=== PATIENT | female | born 1985 | race Caucasian/White ===

== ENCOUNTER 2018-03-17 16:29 | Emergency (ER) | payer OTHER, SELFPAY ==
[2018-03-17 16:30] VITALS: BP 144/95; PULSE 86; RESP 19; TEMP 35.8; O2SAT 100; BMI 21.2
[2018-03-17] MEDS: Etomidate 20 MG/10 ML Vial IV (16:31)
[2018-03-17] MEDS: Rocuronium Bromide 50 MG/5 ML Vial IV (16:32)
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
[2018-03-17 16:44] VITALS: BP 122/77; PULSE 68; RESP 11; O2SAT 100
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
[2018-03-17 16:49] VITALS: RESP 12
[2018-03-17] MEDS: Diphth,Pertuss(Acell),Tet Vac 0.5 ML Vial IM (16:50)
[2018-03-17 16:52] LABS: Hematocrit 33.1 % (37-47); Hemoglobin 10.8 g/dl (12.0-15.0); Mean Corp Hgb Conc 32.6 g/gl (32-36); Mean Corpuscular Hgb 28.8 pg (27.0-32.0); Mean Corpuscular Volume 88.3 fL (81-99); Platelet Count 397 K/mm3 (150-450); RBC Distribution Width CV 14.5 % (11.6-14.6); RBC Distribution Width SD 46.9 fl (35.1-43.9); Red Blood Count 3.75 M/mm3 (4.2-5.4); White Blood Count 8.7 K/mm3 (4.4-11.0)
[2018-03-17 16:53] VITALS: BP 127/76; PULSE 47; RESP 19
--- NOTE | 2018-03-17 17:00 | RAD_ITS ---
STUDY: X-RAY - ABDOMEN/PELVIS REASON FOR EXAM: Female, 32 years old. An NG tube TECHNIQUE: Single AP view of the abdomen / pelvis. COMPARISON: None. FINDINGS: There is an enteric tube noted with its tip in the stomach. There is no bowel obstruction. There is air and stool to the level of the rectum. The visualized osseous structures are within normal limits. RAD/Abdomen Single View (Portable) IMPRESSION: Enteric tube tip in the stomach. No bowel obstruction. Electronically Signed: Florin Rainey, at 17:41 EST Tel , Service support ,
--- NOTE | 2018-03-17 17:01 | NURSING ---
PT ALONE/INTUBATED/NONRESPONSIVE/ [facility] HERE TO TRANSPORT PT
[2018-03-17 17:04] LABS: Scan Indicated on CBC? Y/N NO
[2018-03-17 17:09] LABS: AST(SGOT) 65 U/L (15-37); Alanine Aminotransfer ALT/SGPT 42 U/L (13-56); Albumin, Serum 3.2 g/dL (3.2-5.0); Alkaline Phosphatase 63 U/L (45-117); Anion Gap 10 (5-15); BUN 17 mg/dL (7-18); BUN/Creat Ratio 23.4 RATIO (10-20); Bilirubin, Direct 0.07 mg/dL (0.00-0.30); Calcium,Total 7.7 mg/dL (8.5-10.1); Chloride 111 mmol/L (98-107); Creatinine, Serum 0.73 mg/dL (0.55-1.02); EST Glomerular Filtration Rate 99 mL/min (>60); Est Glom Filt Rate - Afr Amer 120 mL/min (>60); Estimated Creatinine Clearance 93.22 ml/min; Globulin 3.2 g/dL (2.2-4.2); Glucose 87 mg/dL (74-106); Potassium 3.1 mmol/L (3.5-5.1); Protein, Total 6.4 g/dL (6.4-8.2); Sodium Level 142 mmol/L (136-145)
[2018-03-17 17:27] LABS: Pregnancy, Serum, hCG Quali. NEGATIVE Negative (0-9 Nonpreg)
== END 2018-03-17 17:02 | disposition short-term general hospital (02) ==
PROVIDERS: Emergency Provider Emergency Medicine; Family Provider Internal Medicine; PCP Internal Medicine
DX: S01.01XA Laceration without foreign body of scalp, initial encounter (principal); S80.12XA Contusion of left lower leg, initial encounter; S80.11XA Contusion of right lower leg, initial encounter; S09.90XA Unspecified injury of head, initial encounter; Z23 Encounter for immunization; V54.5XXA Driver of pick-up truck or van injured in collision with heavy transport vehicle or bus in traffic accident, initial encounter; Y93.I9 Activity, other involving external motion; Y92.410 Unspecified street and highway as the place of occurrence of the external cause; Y99.8 Other external cause status
CPT/HCPCS: 31500; 51702; 71045; 74018; 80048; 80076; 84703; 85027; 90715; 94002; 96374; 96375; 99251; 99285; J7030; G0463

== ENCOUNTER 2018-10-30 20:53 | Emergency (ER) | payer OTHER, SELFPAY ==
[2018-10-30 20:55] VITALS: BP 138/84; PULSE 103; RESP 18; TEMP 36.8; O2SAT 99; BMI 21.7
--- NOTE | 2018-10-30 21:45 | CT_ITS ---
STUDY: CT BRAIN WITHOUT CONTRAST REASON FOR EXAM: Female, 33 years old. Headache. Feels like air in left ear. Craniotomy. RADIATION DOSAGE (If Supplied By Facility): CTDIvol = ( 44.99 ) mGy, DLP = ( 815.79 ) mGycm TECHNIQUE: Transaxial CT imaging of the brain was performed without administration of intravenous contrast material. Individualized dose optimization techniques were used for this CT. COMPARISON: No relevant priors. FINDINGS: Normal soft tissue structures. There is evidence of prior left sided craniotomy. Normal size ventricles and extra-axial spaces for the patient's age. Normal white matter tracts of the cerebral hemispheres. Normal basal ganglia and thalami. Normal brainstem. Normal cerebellum. There is no intracranial hemorrhage. There are no findings of an acute ischemic infarction. There is minimal opacification of the ethmoid and visualized maxillary sinuses. CT/Brain/Head without Contrast IMPRESSION: No acute intracranial process. Mild opacification of the ethmoid and visualized maxillary sinuses consistent with a history of sinusitis. Electronically Signed: Jackie Herrmann MD at 22:08 EDT Tel , Service support ,
--- NOTE | 2018-10-30 22:52 | CM.ED ---
Social Work Consult: Anxiety Informant: Dr. Mccarthy Chief Complaint: Patient stating to have anxiety and lots of emotions. Patient with history of TBI in 2017. Marital/Social History: Patient to Roge Palm and has 3 sons ages 6, 8, and 10. Living Situation: With family. Support/Resources: Patient identifying spouse as main support. Patient also noting that patient mom and grandmother are supportive and assist with care for sons. Mental Health Treatment/History: Patient denies any mental health counseling services. Patient stating to have been diagnosed with ADHD after TBI. Patient stating to have see a neuropsychiatrist after TBI that recommended for patient to take medication to manage ADHD, patient declined this medication. Patient stating to be taking medications to manage nervous and anxiety. Substance Abuse hx: Patient denies. Risk to self/Others: Patient denies any suicidal or homicidal thoughts. Assessment: Met with patient and patient spouse, Roge in room. Patient agreeable to be meeting with this high school social studies teacher. Patient stating to want help with anxiety. Patient wanting to know if placement in a facility is an option for patient. This high school social studies teacher communicating that patient is not reporting suicidal thoughts or risk to others and does not meet criteria for psychiatric placement and this would not be an appropriate referral. This high school social studies teacher speaking with patient about beginning counseling services or looking into an outpatient program for individuals with a TBI diagnosis. Patient and patient spouse are agreeable to this. Patient or patient spouse to contact counseling agency or outpatient TBI program on Thursday. Patient tearful throughout assessment. Support provided along with active listening. Collaborating with Dr. Mccarthy. Dr. Mccarthy agreeing with above plan. Interventions: Social Work assessment List of counseling agencies provided to patient. Information on outpatient TBI treatment options provided to patient. Calvin HOLCOMB, JAYLYN
--- NOTE | 2018-10-30 23:17 | ED.DCSUM_ITS ---
- ER Visit Summary Date of Service: 10/30/18 Chief Complaint: Headache, sore throat, possible dental infection History of Present Illness: The patient is a 33 F who presents with headache, sore throat, and dental pain that has been getting worse throughout the day today. Patient describes the pain as throbbing. Patient states the pain is worse in her left ear, throat, left upper teeth, and epigastric area. Patient states that cold seems to help with her pain. Patient admits to subjective fevers. Patient also admits to some rhinorrhea. Patient also admits to some nausea but denies any vomiting. Patient states she has persistent headaches for prior traumatic brain injury. Patient states she has a history of anxiety. Physical Examination: Vital signs are stable. Patient is afebrile. Patient is in no acute distress. Cranial nerves II through XII are intact. Strength is 5/5 bilaterally upper and lower extremities. There are no sensory deficits noted. Tympanic membranes are clear bilaterally. Oral mucosa is pink and moist. There are multiple dental caries noted. Oropharynx is clear. There is no exudate noted. Heart was regular rate and rhythm. Lungs are clear and equal bilaterally. Abdomen is soft and nontender. Test Results: CT scan of the brain was obtained. There is no acute intracranial abnormality. Emergency Department Course and Treatment: Patient was advised that her ear pain is most likely related to a dental infection. Patient will be given a prescription for Pen-Vee K for her dental infection. Patient was also given referrals for follow-up with her anxiety. Patient is not acutely suicidal or homicidal at this time and does not require inpatient admission. Patient and her understood and were agreeable with the plan. All questions were answered. Disposition: Discharge home Impression: 1. Infected dental caries 2. Headache 3. History of traumatic brain injury 4. Anxiety This note was generated with [employer] dictation software. It may contain incorrect words, spelling, and punctuation that were not noted in review of the chart prior to signing ED Disposition - Plan for ED Patient: Disposition: Home or Assisted Living Diagnosis: Infected dental caries, Anxiety, Headache Instructions: Dental Cavity, Anxiety Reaction Referrals: Mayte Tirado DO [Primary Care Provider] - 5-7 Days
[2018-10-30 23:48] VITALS: BP 132/60; PULSE 90; RESP 16; O2SAT 98
== END 2018-10-30 23:49 | disposition home or self-care (01) ==
PROVIDERS: Emergency Provider Emergency Medicine; Family Provider Internal Medicine; PCP Internal Medicine
DX: K04.7 Periapical abscess without sinus (principal); K02.9 Dental caries, unspecified; R51 Headache; Z87.820 Personal history of traumatic brain injury; F41.9 Anxiety disorder, unspecified; H53.8 Other visual disturbances; J20.9 Acute bronchitis, unspecified; J34.89 Other specified disorders of nose and nasal sinuses; F17.200 Nicotine dependence, unspecified, uncomplicated
CPT/HCPCS: 70450; 99282

== ENCOUNTER 2019-07-08 13:29 | Emergency (ER) | payer OTHER, SELFPAY ==
[2018-11-01 17:40] VITALS: BMI 21.7
[2019-07-08 13:30] VITALS: BP 105/61; PULSE 104; RESP 20; TEMP 37.7; O2SAT 95; BMI 22.8
--- NOTE | 2019-07-08 13:53 | ED.DCSUM_ITS ---
- ER Visit Summary Date of Service: 07/08/19 Chief Complaint: Nausea, Vomiting and diarrhea History of Present Illness: The patient is a 34 F past medical issues anxiety and depression. Prior traumatic intracranial bleed. Patient states that for the last 5 days she has had nausea vomiting and diarrhea. Diarrhea resolved 2 days ago. She still having nausea vomiting. Initially she thought was food poisoning. He is only had crampy abdominal discomfort no localizing pain. She denies any dysuria. She denies any cough or shortness of breath. She states she feels dehydrated. Physical Examination: Younger female vital signs are stable. Currently her temperature is 99.9. She does not look septic or toxic. H EENT exam unremarkable except mild dry mucous membranes. Neck nontender no lymphadenopathy. Lungs clear to auscultation bilaterally. Heart regular rhythm no murmur rate about 100. Abdomen is soft nontender normal bowel sounds no peritoneal signs. No distention. No obstruction. Right upper and right lower quadrants are unremarkable nontender. No hernias or masses. Extremities moves all 4. No edema. Back nontender. Neurologically she is awake alert with no focal motor or sensory deficits. Test Results: None Emergency Department Course and Treatment: Patient more likely has a viral gastroenteritis. She has no localizing abdominal tenderness. She does not look septic or toxic. She will be treated with IV fluids and Zofran. And then a p.o. fluid challenge. Treatment Plan: Fluids and rest. Increase diet slowly. Zofran as needed for nausea. Follow-up if not improving. Return if worse. Disposition: discharge Impression: Viral gastroenteritis Dehydration This note was generated with [employer] dictation software. It may contain incorrect words, spelling, and punctuation that were not noted in review of the chart prior to signing ED Disposition - Plan for ED Patient: Referrals: Mayte Tirado DO [Primary Care Provider] -
--- NOTE | 2019-07-08 13:56 | ED.DEP ---
ED Disposition - Plan for ED Patient: Disposition: Home or Assisted Living Instructions: ED Viral Gastroenteritis Prescriptions: Ondansetron [Zofran Odt] 4 mg PO Q8H PRN PRN #10 tab PRN Reason: Nausea Prescription Printed Referrals: Mayte Tirado DO [Primary Care Provider] - 3-5 Days if not improving Additional Instructions: Plenty of fluids and rest. Increase diet as tolerated. Zofran as needed for nausea. Follow-up with your doctor if not improving or return to the ER feeling worse.
[2019-07-08] MEDS: 0.9% Normal Saline 1,000 ML 1000 ML IV (14:25)
[2019-07-08] MEDS: Ondansetron 4 MG/2 ML Vial IV (14:25)
[2019-07-08 15:21] VITALS: BP 106/52; PULSE 97; RESP 16
== END 2019-07-08 15:25 | disposition home or self-care (01) ==
LOC: ED 14:10
PROVIDERS: Emergency Provider Emergency Medicine; PCP Internal Medicine
DX: E86.0 Dehydration (principal); A08.4 Viral intestinal infection, unspecified; F41.9 Anxiety disorder, unspecified; F32.9 Major depressive disorder, single episode, unspecified; Z79.899 Other long term (current) drug therapy; Z72.0 Tobacco use
CPT/HCPCS: 96361; 96374; 99283; J7030; J2405

== ENCOUNTER → 2021-03-06 14:11 | Outpatient (CLI) | payer MEDICAID, SELFPAY ==
[2021-03-06 15:24] LABS: Absolute Lymphocyte Count 1.45 X10^3/uL (0.83-4.51); Absolute Neutrophil Count 6.4 X10^3/uL (2.0-7.7); Basophil# 0.05 X10^3/uL; Basophil% 0.6 % (0-1); Eosinophil# 0.04 X10^3/uL; Eosinophils% 0.5 % (0-5); Hematocrit 39.4 % (37-47); Hemoglobin 13.1 g/dL (12.0-15.0); Lymphocyte # 1.45 X10^3/ul (0.83-4.51); Lymphocyte % 16.6 % (19-41); Mean Corp Hgb Conc 33.2 g/dL (32-36); Mean Corpuscular Hgb 29.3 pg (27.0-32.0); Mean Corpuscular Volume 88.1 fL (81-99); Mean Platelet Vol. 10.2 fl (6.2-12.0); Monocyte# 0.75 X10^3/uL; Monocyte% 8.6 % (0-10); NRBC Flagged by Analyzer 0 % (0-5); Neutrophil # 6.39 X10^3/uL (2.7-7.7); Neutrophil % 73.1 % (47-70); Platelet Count 297 K/mm3 (150-450); RBC Distribution Width CV 14.6 % (11.6-14.6); RBC Distribution Width SD 47.2 fl (35.1-43.9); Red Blood Count 4.47 M/mm3 (4.2-5.4); White Blood Count 8.7 K/mm3 (4.4-11.0)
[2021-03-07 08:44] LABS: HIV - WCH Non-Reactive (Nonreactive); Hepatitis B Surface Antigen Non-Reactive (Nonreactive); Hepatitis C Antibody Non-Reactive (Nonreactive); Rubella IgG Reactive (Nonreactive); Syphilis Antibodies Non-reactive
[2021-03-09 02:07] LABS: Chlamydia By Nucleic Acid AMP Negative (Negative)
[2021-03-09 07:44] LABS: Gonococcus By Nucleic Acid AMP Negative (Negative)
[2021-03-12 13:32] LABS: HPV APTIMA, High Risk Negative (Negative)
== END ==
PROVIDERS: PCP Internal Medicine; Visit Provider Obstetrics & Gynecology
DX: Z34.81 Encounter for supervision of other normal pregnancy, first trimester (principal); Z11.3 Encounter for screening for infections with a predominantly sexual mode of transmission; Z12.4 Encounter for screening for malignant neoplasm of cervix
CPT/HCPCS: 36415; 85025; 86703; 86762; 86780; 86803; 87086; 87088; 87340; 87491; 87591; 87624; 88175; G0145

== ENCOUNTER 2021-07-04 14:16 | Outpatient (CLI) | payer MEDICAID, SELFPAY ==
[2021-07-04 14:53] LABS: Hematocrit 30.6 % (37-47); Mean Corp Hgb Conc 32.7 g/dL (32-36); Mean Corpuscular Volume 91.9 fL (81-99); Mean Platelet Vol. 10.1 fl (6.2-12.0); Platelet Count 358 K/mm3 (150-450); RBC Distribution Width SD 47.5 fl (35.1-43.9); Red Blood Count 3.33 M/mm3 (4.2-5.4); White Blood Count 13.1 K/mm3 (4.4-11.0)
[2021-07-04 15:04] LABS: Glucose Challenge Gest 1H 50g 104 mg/dL (70-140)
== END 2021-07-04 23:59 | disposition home or self-care (01) ==
LOC: WOBLAB 14:18
PROVIDERS: PCP Internal Medicine; Referring Provider Obstetrics & Gynecology; Visit Provider Obstetrics & Gynecology
DX: Z34.82 Encounter for supervision of other normal pregnancy, second trimester (principal)
CPT/HCPCS: 36415; 82950; 85027

== ENCOUNTER → 2021-09-12 | Outpatient (CLI) | payer MEDICAID, SELFPAY | END | disposition home or self-care (01) | LOC: LABSPEC 12:02 | PROVIDERS: PCP Internal Medicine; Visit Provider Obstetrics & Gynecology | DX: Z36.85 Encounter for antenatal screening for Streptococcus B (principal) | CPT/HCPCS: 87081 ==

== ENCOUNTER 2021-10-01 09:38 | Inpatient (IN) | payer MEDICAID, SELFPAY ==
[2021-10-01] VITALS (15 sets, daily range): BP systolic 86–115; BP diastolic 35–63; PULSE 60–84; RESP 14–16; TEMP 36.3–37.1; O2SAT 95–98; BMI 29.0
[2021-10-01] MEDS: Lactated Ringers 1,000 ML 999 ML IV (10:16)
[2021-10-01 10:39] LABS: Absolute Lymphocyte Count 1.38 X10^3/uL (0.83-4.51); Absolute Neutrophil Count 10.1 X10^3/uL (2.0-7.7); Basophil# 0.04 X10^3/uL; Basophil% 0.3 % (0-1); Eosinophil# 0.07 X10^3/uL; Eosinophils% 0.6 % (0-5); Hematocrit 26.2 % (37-47); Hemoglobin 8.7 g/dL (12.0-15.0); Lymphocyte # 1.38 X10^3/ul (0.83-4.51); Lymphocyte % 10.9 % (19-41); Mean Corp Hgb Conc 33.2 g/dL (32-36); Mean Corpuscular Volume 84.2 fL (81-99); Mean Platelet Vol. 10.7 fl (6.2-12.0); Monocyte# 0.93 X10^3/uL; Monocyte% 7.3 % (0-10); NRBC Flagged by Analyzer 0 % (0-5); Neutrophil # 10.09 X10^3/uL (2.7-7.7); Neutrophil % 79.4 % (47-70); Platelet Count 373 K/mm3 (150-450); RBC Distribution Width CV 14.3 % (11.6-14.6); RBC Distribution Width SD 43.7 fl (35.1-43.9); Red Blood Count 3.11 M/mm3 (4.2-5.4); White Blood Count 12.7 K/mm3 (4.4-11.0)
[2021-10-01] MEDS: Acetaminophen 500 MG Tablet 1000 MG PO ×3 (11:03→23:05)
[2021-10-01] MEDS: Lactated Ringers 1,000 ML 150 ML IV (11:07)
--- NOTE | 2021-10-01 11:57 | PCM.HP.BLA ---
History and Physical Date of Admission: 10/01/21 Chief complaint: Repeat section bilateral tubal ligation History of present illness: 36-year-old at 39 weeks and 1 day with MAXX: 10/07/2021 by 9-week ultrasound arrives for repeat section bilateral tubal ligation at term. Denies headache, visual changes, chest pain, shortness of breath, nausea vomiting, right upper quadrant pain. Patient states good movement. is complicated by AMA, chronic anemia Obstetric history: G1: 40-week primary section nonreassuring heart tones male 04/2008 G2: 39-week repeat section 07/2010 G3: 39-week repeat section 09/2012 G4: Current Past medical history: Chronic anemia Past surgical history: section x3, tonsils and adenoids, skull, left elbow Medications: vitamin, iron Allergies: No known drug allergies Social history: Half pack per day smoker, denies alcohol or drug use Family history: Denies history DVT or PE Review of systems: Besides above pertinent positives a full review of systems was performed and found to be negative Physical exam: Vitals: Pending General: Normal-appearing no acute distress none HEENT: Normocephalic/atraumatic no cervical of adenopathy Cardiac/respiratory: No use of accessory muscles, nonlabored breathing Abdomen: Soft, nontender, gravid Extremities: No peripheral edema normal peripheral pulses Psych: Normal affect, demeanor nonpressured speech Labs: White blood cell count 12.7 hemoglobin 8.7 hematocrit 26.2% platelets 373. Blood type AB+ antibody negative Assessment plan: 36-year-old at 39 weeks and 1 day for repeat section bilateral tubal ligation at term Admit labor and delivery CEFM 2 g Ancef Routine orders Anesthesia to see
[2021-10-01] MEDS: Sodium Citrate/Citric Acid 30 ML UDC PO (11:58)
[2021-10-01] MEDS: Cefazolin 2 GM in 0.9% Normal Saline 100 ML IV (12:12)
--- NOTE | 2021-10-01 12:27 | FALS_PTH ---
PATIENT: CJ MAYA LOC: [facility] U#:[id number] AGE/SX: 36/F ROOM: WP006 RE10/01/[address]: Dr. Darshan Avendaño MD : 1985 BED: 1 DIS: 10/02/2021 SPEC #: [id number] RECD: 10/01/21 13:33 STATUS: NGHIA DANA #: [id number] WALTER: 10/01/21 12:[address]: Darshan Avendaño DEPT: SURGICAL PATHOLOGY RECD BY: Miki Quezada ENTERED: 10/02/21 08:44 SP TYPE: FALL TUBES OTHR DR: Dr. Mayte Tirado DO Tissues: Fallopian tube Procedures: Surgery Specimen Level II HEADER OPERATION: Tubal ligation PRE-OP DIAGNOSIS: Sterilization TISSUE SUBMITTED: Fallopian tubes MICROSCOPIC DIAGNOSIS Right fallopian tube, salpingectomy: Benign paratubal cyst. Left fallopian tube, salpingectomy: Benign paratubal cyst. AM:tim 10/03/2021 MICROSCOPIC DESCRIPTION Slides are reviewed. GROSS DESCRIPTION Received in fixative is one container labeled with the patient's name and designated bilateral fallopian tubes, suture left side. The specimen consists of bilateral fallopian tubes including fimbrial ends. Right fallopian tube measures 6 cm in length and 0.6 cm in diameter and the left fallopian tube measures 7 cm in length and up to 0.6 cm in diameter. Sections reveal unremarkable cut surfaces. Digital Marketing Associate sections are submitted in two cassettes as follows: 1 ? right fallopian tube, 2 ? left fallopian tube. / SJ:tim 10/02/2021 TC:5 CPT: 71972 x2
--- NOTE | 2021-10-01 12:53 | OP.PCM_ITS ---
Details Operative Information Date of Procedure: 10/01/21 Pre-Operative Diagnosis: History of section, term, desires permanent sterilization Post-Operative Diagnosis: History of section, term, desires permanent sterilization Indications Narrative: Procedure: Repeat low transverse section Via Pfannenstiel incision bilateral salpingectomy Surgeon: Darshan Avendaño MD Anesthesia: Spinal EBL: 800 cc Urine output: Minimal IV fluids: 1000 cc Complications: None Specimen: Bilateral fallopian tubes Findings: Female infant in vertex position Apgars 8/9. Normal uterus, tubes, and ovaries. Consent: Patient with history of section desires permanent sterilization in need of repeat section Via Pfannenstiel incision and bilateral salpingectomy. Patient understands risk of the procedure include but are not limited to visceral or vascular injury, prolonged hospitalization, blood loss and need for transfusion, reoperation. Patient state understanding and wished to proceed. All questions were answered and consent was signed. Procedure: Patient was brought back to the OR where spinal anesthesia was found to be adequate. 2 g of Ancef were given for infection prophylaxis. Patient was p repared and draped in a supine position with leftward tilt. A Pfannenstiel incision was made at the skin with a scalpel. The incision was carried down to the fascia with a scalpel. The fascia was excised and extended laterally. Inferior aspect of the fascia was grasped with a clamp and the underlying rectus and pyramidalis muscle were dissected off sharply with Roa scissors. In a similar fashion the superior aspect of the fascia was grasped with a clamp and the underlying rectus muscle was dissected off sharply. Rectus muscle was dissected at the midline down to the level of pubic symphysis. Preperitoneal fatty tissue was noted and peritoneum was entered bluntly. Peritoneum was extended superiorly and inferiorly with good visualization of bladder. Bladder blade was inserted and vesicouterine peritoneum was identified. Low transverse hysterotomy was made. Hand was placed in the incision and gentle fundal pressure was applied once the head was brought into the incision and the bladder blade was removed. Head and shoulders were delivered with ease. Cord was cut and clamped. Baby handed off to nursing. Placenta was delivered via cord traction and fundal massage. IV oxytocin was initiated in order to facilitate uterine contractions. Uterus was exteriorized and wiped out with dry laparotomy sponge in order to remove remaining placental membranes. Uterus was closed in a continuous running fashion. Good hemostasis was noted. Right fallopian tube was identified within the fimbriae and the mesosalpinx was cut and cauterized with a LigaSure device, right fallopian tube was sent to pathology. Left fallopian tube was identified up to the fimbria and the mesosalpinx was cut and cauterized with LigaSure device, left fallopian tube was sent to pathology. Good hemostasis was noted bilaterally. Uterus was placed back into the abdominal cavity and incision was reinspected, good hemostasis was noted. Fascia was closed in a continuous running fashion with PDS suture. Subcutaneous irrigation was performed and good hemostasis was noted. Skin was closed in a subcuticular fashion. Good hemostasis was noted. All counts were correct x2. Patient tolerated procedure well and was brought to recovery in stable condition.
[2021-10-01] MEDS: Oxytocin 30 units/NS 500 ml 30 UNITS/500 ML IV.SOLN 167 UNITS IV (13:10)
[2021-10-01 13:33] LABS: Pathology Specimen OB SEE PATHOLOGY REPORT
[2021-10-01] MEDS: Ketorolac 30 MG/ML Syringe IV ×2 (13:43→19:20)
[2021-10-01] MEDS: oxyCODONE 5 MG Tablet PO ×3 (14:15→23:04)
[2021-10-01] MEDS: Lactated Ringers 1,000 ML 100 ML IV (16:10)
[2021-10-02] MEDS: Ketorolac 30 MG/ML Syringe IV ×2 (01:08→07:37)
[2021-10-02 04:02] VITALS: BP 105/60; PULSE 80; RESP 14; TEMP 36.9
[2021-10-02] MEDS: Acetaminophen 500 MG Tablet 1000 MG PO ×2 (05:04→10:32)
[2021-10-02 05:11] LABS: Hematocrit 24.1 % (37-47); Hemoglobin 7.7 g/dL (12.0-15.0); Mean Corpuscular Hgb 27.7 pg (27.0-32.0); Mean Corpuscular Volume 86.7 fL (81-99); Mean Platelet Vol. 10.2 fl (6.2-12.0); Platelet Count 311 K/mm3 (150-450); RBC Distribution Width CV 14.4 % (11.6-14.6); RBC Distribution Width SD 45.4 fl (35.1-43.9); Red Blood Count 2.78 M/mm3 (4.2-5.4); White Blood Count 15.9 K/mm3 (4.4-11.0)
[2021-10-02] MEDS: 0.9% Saline Lock 10 ML Syringe IV (07:38)
[2021-10-02 07:45] VITALS: BP 120/66; PULSE 74; RESP 16; TEMP 36.7
--- NOTE | 2021-10-02 09:11 | PN.OBGYN_ITS ---
Subjective Subjective Patient without complaints. Tolerating diet well. Minimal vaginal bleeding. Denies any orthostatic changes. Positive flatus. Wants to go home if baby is able to go. Objective Data Objective Data Good urine output. Hemoglobin stable at 7.7. Wound is clean, dry, intact covered with Mepilex dressing. Vital Signs: Vital Signs Temp Pulse Resp BP Pulse Ox O2 Del Method 98.0 F 74 16 120/66 98 Room Air 10/02/21 07:45 10/02/21 07:45 10/02/21 07:45 10/02/21 07:45 10/01/21 19:21 10/02/21 04:02 Oxygen Delivery Method Room Air Weight: 158 lb 11.725 oz Body Mass Index (BMI) 29.0 Intake & Output: Intake and Output for Last 24 Hours 09/30/21 10/01/21 10/02/21 23:59 23:59 23:59 Intake Total 3378.33 / 3378.33 Output Total 2300 / 2300 Balance 1078.33 / 1078.33 Lab / Micro Data Result Diagrams: 10/02/21 05:03 Labs: Laboratory Results - last 24 hr 10/01/21 10:10: WBC 12.7 H, RBC 3.11 L, Hgb 8.7 L, Hct 26.2 L, MCV 84.2, MCH 28.0, MCHC 33.2, RDW Std Deviation 43.7, RDW Coeff of Luba 14.3, Plt Count 373, MPV 10.7, Immature Gran % (Auto) 1.500 H, Neut % (Auto) 79.4 H, Lymph % (Auto) 10.9 L, Phillips % (Auto) 7.3, Eos % (Auto) 0.6, Baso % (Auto) 0.3, Absolute Neuts (auto) 10.1 H, Absolute Lymphs (auto) 1.38, Nucleated RBC % 0 10/01/21 10:10: Blood Type AB POSITIVE, Antibody Screen NEGATIVE 10/02/21 05:03: WBC 15.9 H, RBC 2.78 L, Hgb 7.7 L, Hct 24.1 L, MCV 86.7, MCH 27.7, MCHC 32.0, RDW Std Deviation 45.4 H, RDW Coeff of Luba 14.4, Plt Count 311, MPV 10.2 Micro: Microbiology 10/01/21 10:23 Nasal Secretion SARS-CoV-2 Antigen (Rapid) - Final Assessment & Plan (1) Delivery by section: PLAN: Doing well postoperative day #1 status post repeat section and tubal. Will discharge to home with routine instructions if baby is able to go. Patient instructed to use iron therapy for at least 6 weeks.
--- NOTE | 2021-10-02 09:14 | DCINST_ITS ---
Discharge Instructions Diet Discharge Diet: No restrictions Activity May resume sexual activity in: 4-6 weeks Lifting Restrictions: 20 pounds Additional Activity Instructions:: Nothing in the vagina for 4 weeks please; no lifting more than 20-25 lbs for 6 weeks. Use Ibuprophen 800 mg orally every 8 hours as needed for pain. Can also add Tylenol 1000 mg every 8 hours if needed for pain. If Ibuprophen and Tylenol are not effective then use the Oxycodone but keep in mind it can cause serious constipation issues. Drink lots of water. Call if bleeding more than a pad per hour. Use the colace as constipation is a big issue after this type of surgery. Steps and walking are OK. Activity is encouraged but do not over do it !! Dressing / Incision Call your doctor if your incision/area has: Continuous Slow Oozing, Sudden Increased Bleeding, Increased Pain/ Swelling, Increased Redness and Foul Smelling Discharge Call your doctor if you observe: Fever of 101 or Higher, Inability to urinate, Inability to have a bowel movement and Using more than 1 pad per hour Follow Up Care Please Follow Up With: Darshan Avendaño MD When: Call [phone] for appointment to be seen in 2 weeks. Test Results: Test results from this visit will be discussed in further detail at your follow- up appointment, if applicable. Discharge Plan Admission Admit Date/Time: 10/01/21 09:38 Primary Reason for Your Visit: Repeat Section and Tubal Attending Provider: Darshan Avendaño Primary Care Provider: Mayte Tirado Discharge Orders/Prescriptions Prescriptions: New oxycodone 5 mg capsule 5 mg PO Q6H PRN (Reason: pain (scale score 7-10)) 7 Days Qty: 10 0RF docusate sodium 100 mg tablet 100 mg PO BID PRN (Reason: constipation) Qty: 60 1RF ferrous sulfate 325 mg (65 mg iron) tablet 325 mg PO BID Qty: 60 1RF Continued Prenatabs FA 29-1 mg Tablet 1 tab PO DAILY Referrals / Follow Up: Mayte Tirado DO [Primary Care Provider] - Disposition Disposition (needs filled in before D/C Order can be placed): Home, Self Care
[2021-10-02] MEDS: Senna/Docusate Sodium 1 Tablet PO (10:33)
[2021-10-02] MEDS: Enoxaparin 40 MG/0.4 ML Syringe SC (10:33)
[2021-10-02 12:45] VITALS: BP 112/71; PULSE 73; RESP 16; TEMP 36.8
[2021-10-02] MEDS: Ibuprofen 600 MG Tablet PO (14:17)
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
== END 2021-10-02 17:45 | disposition home or self-care (01) | DRG 539 ==
PROVIDERS: Admitting Provider Obstetrics & Gynecology; PCP Internal Medicine; Visit Provider Obstetrics & Gynecology
PROC: 10D00Z1 Extraction of Products of Conception, Low, Open Approach (ICD-10-PCS; CPT 59514; principal; 2021-10-01 11:45)
DX: O34.211 Maternal care for low transverse scar from previous cesarean delivery (principal); F17.210 Nicotine dependence, cigarettes, uncomplicated; O99.02 Anemia complicating childbirth; Z37.0 Single live birth; Z3A.39 39 weeks gestation of pregnancy; O99.334 Smoking (tobacco) complicating childbirth
CPT/HCPCS: 59050; 85025; 85027; 86850; 86900; 86901; 87426; 88302; 99218; 99406; J7120; A4216; G0378; J2405

== ENCOUNTER 2021-10-03 11:26 | Emergency (ER) | payer MEDICAID, SELFPAY ==
[2021-10-03 11:26] VITALS: BP 144/76; PULSE 86; RESP 14; TEMP 36.6; O2SAT 97; BMI 27.2
--- NOTE | 2021-10-03 11:42 | CT_ITS ---
STUDY: CT FACIAL BONES WITHOUT CONTRAST REASON FOR EXAM: Female, 36 years old. Abscess overlying the right mandible. Recent antibiotics. RADIATION DOSAGE (If Supplied By Facility): CTDIvol = ( 29.38 ) mGy, DLP = ( 547.46 ) mGycm TECHNIQUE: The patient was scanned in a multi detector CT scanner. Sagittal and coronal images were reconstructed. Individualized dose optimization techniques were used for this CT. COMPARISON: None. FINDINGS: Diffuse soft tissue swelling in the subcutaneous tissues overlying the right side of the mandible with overlying skin thickening and subcutaneous edema. This is in keeping with a phlegmon. No abscess is seen. There is evidence of a lytic abnormality at the base of the last molar in the mandible. Normal orbital puckett and orbital contents. Normal nasal bones and anterior nasal spine. Normal facial bones. There is no demonstrated fracture. Normal visualized paranasal sinuses. CT/Sinus/Facial Bone IMPRESSION: Diffuse soft tissue swelling overlying the right mandible without evidence of abscess. Findings in keeping with a possible cavity at the base of the last molar in the mandible. Electronically Signed: Juanito Pepper MD at 12:17 EDT ,
--- NOTE | 2021-10-03 11:46 | EX.ED.DYSGE1 ---
HPI History of Present Illness Chief Complaint: Abscess Detail of Chief Complaint: Jaw abscess Informant: patient Narrative Narrative: Patient presents to the emergency department complaint of an abscess to her jaw that she initially states started about a week and a half ago. Patient was seen in urgent care in [place] and started on Zithromax for 5 days. Patient then delivered a baby via 2 days ago and the redness and swelling have increased. She denies any fevers. She denies significant pain. Patient has not followed up with a dentist. Prior similar symptoms: No PFSH PFSH Medical History (Updated 10/03/21 @ 12:[address] Opal Morgan, DO) History of blood transfusion History of pre-term labor Trauma Home Medications vits,calcium no.78-iron fumarate-folic acid 29 mg-1 mg tablet (Prenatabs FA) 1 tab PO DAILY 10/01/21 [History Last Taken 09/30/21 08:00] docusate sodium 100 mg tablet 100 mg PO BID PRN constipation #60 tabs 10/02/21 [Rx Last Taken Unknown] ferrous sulfate 325 mg (65 mg iron) tablet 325 mg PO BID #60 tabs 10/02/21 [Rx Last Taken Unknown] oxycodone 5 mg capsule 5 mg PO Q6H PRN pain (scale score 7-10) 7 days #10 caps 10/02/21 [Rx Last Taken Unknown] clindamycin HCl 300 mg capsule (Cleocin HCl) 300 mg PO Q6H #40 CAPSULES 10/03/21 [Rx Last Taken Unknown] Allergy/AdvReac Type Severity Reaction Status Date / Time ciprofloxacin [From Cipro] Allergy Hives Verified 10/03/21 11:29 fentanyl AdvReac Other Verified 10/03/21 11:29 Surgical History (Updated 10/02/21 @ 09:[address] J Carlos Barlow MD) History of History of craniotomy History of elbow surgery Social History (System 11/09/18 @ 13:40 by Priyanka Christianson) Smoking Status: Current every day smoker tobacco type: cigarettes alcohol intake: never ROS ROS ED Review of Systems ROS Unobtainable: other Constitutional Constitutional ED: Reports lethargy; Denies chills, fever(s), sweats or weight loss Eyes Eyes: Denies blurry vision, change in vision or diplopia ENT ENT ED: Reports other Details: Jaw abscess ; Denies rhinorrhea or sore throat Cardiovascular Cardiovascular: Reports chest pain and racing heartbeat; Denies orthopnea Respiratory/Chest Respiratory/Chest: Reports dyspnea and dyspnea on exertion; Denies cough, orthopnea or sputum Gastrointestinal Gastrointestinal: Denies abdominal pain, diarrhea, nausea or vomiting Genitourinary Genitourinary ED: Denies dysuria, hematuria or urinary frequency Musculoskeletal Musculoskeletal: Denies arthralgias, back pain, myalgias or neck pain Integumentary Denies abscess, Abrasions or rash Neurologic Neurologic: Denies headache(s) or weakness Psychiatric Psychiatric: Denies anxiety, depression or suicidal thoughts Endocrine Endocrinology: Denies polydipsia, polyphagia or polyuria Hematologic/Lymphatic Hematologic/Lymphatic: Denies easy bleeding, easy bruising or lymphadenopathy Allergic/Immunologic Allergic/Immunologic ED: Denies mouth swelling, tongue swelling or urticaria EXAM Physical Exam Const Vital Signs: 10/03/21 11:26 10/03/21 12:05 Temperature 97.9 F 97.9 F Temperature Source Temporal Temporal Pulse Rate 86 86 Respiratory Rate 14 14 Blood Pressure 144/76 H 144/76 H Blood Pressure Mean 98 Pulse Ox 97 97 Oxygen Delivery Method Room Air Room Air Positive well nourished and well developed General Appearance ED: well developed and NAD HEENT Reports TM's clear and moist mucous membranes HEENT Narrative: Patient has area of soft tissue swelling to the right lower mandible. She has multiple broken and carious teeth that are not tender to palpation. Patient does have fullness along the gingiva with an area of suspected fluctuance noted. There is some faint facial erythema. normocephalic and atraumatic; Negative for trauma or tenderness Tympanic Membrane ED: Yes TM's clear Eyes PERRL and EOMs intact bilaterally General Eye ED: Negative for pale conjunctiva or scleral icterus Neck no lymphadenopathy, supple and no JVD General: Negative for tenderness Chest Wall inspection of chest normal and palpation of chest normal Chest: Negative for tenderness Resp normal respiratory effort and clear to auscultation bilaterally Effort and Inspection: Negative for respiratory distress or pain with movement Auscultation: Negative for rhonchi, wheezes or diminished lung sounds Cardio regular rate, regular rhythm, S1 normal heart sound, S2 normal heart sound and no murmurs Peripheral Pulses: pulses 2+ throughout GI normal to inspection, nondistended, normoactive bowel sounds, soft to palpation, non-tender, non-distended and no masses Back/Spine no CVA tenderness and no thoracic nor lumbar tenderness Extremity normal to inspection General Extremety ED: Negative for edema General Extremity: Negative for edema Neuro oriented x3, CN's II-XII intact bilaterally, no sensory deficits noted and gait normal Sensorium / Orientation: awake, alert, oriented to person, oriented to place and oriented to time Motor Exam: strength 5/5 throughout and strength abnormal Psych mental status grossly normal Skin no rashes or lesions noted and no wounds MDM MDM MDM Narrative Medical decision making narrative: I suspected a dental abscess. Patient was offered a incision and drainage. Patient was in agreement. I did take an 18-gauge needle and made a stab incision into the most fluctuant portion of the gingiva adjacent to the premolars and only blood was expressed and no real purulent debris. Patient also has a fluctuant area on the dermal surface of the jaw as well. This point a decision was made to obtain a CT scan to evaluate further to see if there is is just inflammatory changes versus discrete abscess. The CT scan was obtained and showed inflammatory changes but no discrete abscess. At this point patient advised use warm compresses to the area. I will start her on clindamycin. Patient will start her infant on bottle feeds as she has already started this today. Patient will be given a list of dentists in the area and advised to follow-up. Radiography Diagnostic Testing: Clinical Impression(s) from Imaging Studies Facial/Sinus 10/03/21 11:42 IMPRESSION: Diffuse soft tissue swelling overlying the right mandible without evidence of abscess. Findings in keeping with a possible cavity at the base of the last molar in the mandible. Electronically Signed: Juanito Pepper MD at 12:17 EDT , Discharge Plan Triage Chief Complaint: Abscess ED Provider: Opal Morgan Dx/Rx/DC Orders Clinical Impression: Dental cavities, Cellulitis of face Instructions: ED Cellulitis, Facial, ED Dental Cavity Prescriptions: New clindamycin HCl [Cleocin HCl] 300 mg capsule 300 mg PO Q6H Qty: 40 0RF No Action Prenatabs FA 29-1 mg Tablet 1 tab PO DAILY oxycodone 5 mg capsule 5 mg PO Q6H PRN (Reason: pain (scale score 7-10)) 7 Days Qty: 10 0RF docusate sodium 100 mg tablet 100 mg PO BID PRN (Reason: constipation) Qty: 60 1RF ferrous sulfate 325 mg (65 mg iron) tablet 325 mg PO BID Qty: 60 1RF Primary Care Provider: Mayte Tirado Referrals: Mayte Tirado, [Primary Care Provider] - Activity Restrictions/Additional Instructions: See a dentist at the earliest possible time Disposition Disposition: Home, Self Care
[2021-10-03 12:05] VITALS: BP 144/76; PULSE 86; RESP 14; TEMP 36.6; O2SAT 97
[2021-10-03] MEDS: Clindamycin HCl 150 MG Capsule 300 MG PO (12:50)
[2021-10-03 12:52] VITALS: BP 140/72; PULSE 80; RESP 18
== END 2021-10-03 12:52 | disposition home or self-care (01) ==
PROVIDERS: Emergency Provider Emergency Medicine; PCP Internal Medicine; Visit Provider Emergency Medicine
DX: O99.893 Other specified diseases and conditions complicating puerperium (principal); O99.73 Diseases of the skin and subcutaneous tissue complicating the puerperium; O99.63 Diseases of the digestive system complicating the puerperium; L03.211 Cellulitis of face; M27.2 Inflammatory conditions of jaws; F17.210 Nicotine dependence, cigarettes, uncomplicated; K02.9 Dental caries, unspecified
CPT/HCPCS: 41800; 70486; 99282

== ENCOUNTER → 2021-11-15 | Outpatient (CLI) | payer MEDICAID, SELFPAY ==
[2021-11-15 16:07] LABS: Absolute Lymphocyte Count 1.91 X10^3/uL (0.83-4.51); Absolute Neutrophil Count 5.4 X10^3/uL (2.0-7.7); Basophil# 0.06 X10^3/uL; Basophil% 0.7 % (0-1); Eosinophil# 0.11 X10^3/uL; Eosinophils% 1.3 % (0-5); Hematocrit 41.4 % (37-47); Hemoglobin 13.3 g/dL (12.0-15.0); Lymphocyte # 1.91 X10^3/ul (0.83-4.51); Lymphocyte % 23.2 % (19-41); Mean Corp Hgb Conc 32.1 g/dL (32-36); Mean Corpuscular Hgb 28.5 pg (27.0-32.0); Mean Corpuscular Volume 88.7 fL (81-99); Mean Platelet Vol. 9.8 fl (6.2-12.0); Monocyte# 0.77 X10^3/uL; Monocyte% 9.3 % (0-10); NRBC Flagged by Analyzer 0 % (0-5); Neutrophil # 5.37 X10^3/uL (2.7-7.7); Neutrophil % 65.3 % (47-70); Platelet Count 444 K/mm3 (150-450); RBC Distribution Width CV 17.3 % (11.6-14.6); RBC Distribution Width SD 56.3 fl (35.1-43.9); Red Blood Count 4.67 M/mm3 (4.2-5.4); White Blood Count 8.2 K/mm3 (4.4-11.0)
[2021-11-15 16:42] LABS: hCG Titer Quant., Serum < 1 mIU/mL (1-3)
[2021-11-15 16:51] LABS: ALB/GLOB Ratio 0.9 RATIO (0.9-2.4); AST(SGOT) 14 U/L (15-37); Alanine Aminotransfer ALT/SGPT 21 U/L (13-56); Albumin, Serum 3.4 g/dL (3.2-5.0); Alkaline Phosphatase 74 U/L (45-117); Anion Gap 5 (5-15); BUN 14 mg/dL (7-18); BUN/Creat Ratio 18.9 RATIO (10-20); Calcium,Total 8.6 mg/dL (8.5-10.1); Chloride 108 mmol/L (98-107); Creatinine, Serum 0.74 mg/dL (0.55-1.02); EST Glomerular Filtration Rate 95 mL/min (>60); Est Glom Filt Rate - Afr Amer 115 mL/min (>60); Globulin 3.9 g/dL (2.2-4.2); Glucose 88 mg/dL (74-106); Potassium 4.1 mmol/L (3.5-5.1); Protein, Total 7.3 g/dL (6.4-8.2); Sodium Level 139 mmol/L (136-145); T4 Free Direct 0.93 ng/dL (0.76-1.46); Thyroid Stim Hormone (TSH) 1.12 uIU/mL (0.358-3.74)
== END | disposition home or self-care (01) ==
LOC: LAB 14:50
PROVIDERS: PCP Internal Medicine; Referring Provider Obstetrics & Gynecology; Visit Provider Obstetrics & Gynecology
DX: Z39.2 Encounter for routine postpartum follow-up (principal)
CPT/HCPCS: 36415; 80053; 84439; 84443; 84702; 85025

== ENCOUNTER → 2022-06-27 | Outpatient (CLI) | payer MEDICAID, SELFPAY ==
--- NOTE | 2022-06-27 | EMB_PTH ---
PATIENT: CJ MAYA LOC: [facility] U#:[id number] AGE/SX: 37/F ROOM: RE06/27/[address]: Dr. Darshan Avendaño MD : 1985 BED: DIS: 06/27/2022 SPEC #: [id number] RECD: 06/27/22 13:15 STATUS: NGHIA JEAN-PAUL #: [id number] WALTER: 06/27/22 00:[address]: Darshan Avendaño DEPT: SURGICAL PATHOLOGY RECD BY: Cheo Ta ENTERED: 06/30/22 10:05 SP TYPE: ENDOM BX/C CLIVE DR: Dr. Mayte Tirado, Tissues: Endometrium, NOS Procedures: Surgery Specimen Level IV HEADER OPERATION: Endometrial biopsy PRE-OP DIAGNOSIS: Abnormal uterine bleeding N93.9 TISSUE SUBMITTED: Endometrial biopsy MICROSCOPIC DIAGNOSIS Endometrial biopsy: Scant fragments of benign endometrial and endocervical epithelium, blood and mucous. See comment. SHANNAN:tim 07/01/2022 COMMENT The specimen predominantly consists of blood and mucous. Clinical correlation and appropriate follow up are necessary. MICROSCOPIC DESCRIPTION Slides are reviewed. GROSS DESCRIPTION Received in fixative is one container labeled with the patient's name and designated endometrial biopsy. The specimen consists of multiple fragments of pink hemorrhagic soft tissue that in aggregate measure 2.5 x 1.5 x 0.1 cm. The specimen is totally submitted in one cassette. / SJ:tim 06/30/2022 TC:4 CPT: 18484
== END | disposition home or self-care (01) ==
LOC: LABSPEC 13:08
PROVIDERS: PCP Internal Medicine; Visit Provider Obstetrics & Gynecology
DX: N93.9 Abnormal uterine and vaginal bleeding, unspecified (principal)
CPT/HCPCS: 88305